=== PATIENT | female | born 1960 | race Caucasian/White ===

== ENCOUNTER 2018-04-16 16:26 | Emergency (ER) | payer MEDICARE, MEDICAID ==
[~2018-04-16] VITALS: Ht 157.5 cm; Wt 81.7 kg
[~2018-04-16 16:26] MED LIST: ALEVE220 MG PO; DOXYCYCLINE 10100 MG PO; LISINOPRIL10 MG PO; PRILOSEC 20 MG20 MG PO; ZOCOR 10 MG TAB10 MG PO
[2018-04-16] MEDS ORDERED: REMERON15 MG PO (16:39)
[2018-04-16] MEDS ORDERED: HYDROCHLOROTH12.5 M1 PO (16:39)
[2018-04-16] MEDS ORDERED: ZOCOR20 MG PO (16:39)
[2018-04-16] MEDS ORDERED: PRINIVIL20 MG PO (16:39)
[2018-04-16] MEDS ORDERED: FISH OIL 1,001000 M2 PO (16:40)
[2018-04-16] MEDS ORDERED: VITAMIN D2000 UNIT PO (16:40)
[2018-04-16] MEDS ORDERED: ZANTAC 150MG T150 MG PO (16:40)
[2018-04-16] MEDS ORDERED: NABUMETONE 750750 M1 PO (17:32)
[2018-04-16] MEDS ORDERED: TRAMADOL 50 MG50 MG PO (17:32)
[2018-04-16 17:39] VITALS: BP 128/82
--- NOTE | 2018-04-17 11:18 | EKG ---
[place] [address] ELECTROCARDIOGRAM REPORT Name: KAREN GUNDERSON Room: [facility]#: [id number] Admission: 04/16/18 Attend Phys: Discharge: 04/16/18 Date of : 62 Report #: [id number] THIS REPORT FOR: //name// [facility] ED Test Date: 2018-04-16 Test Time: 16:43:26 Pat Name: KAREN LAVAR Department: Room: Gender: F [employer]: EVE : 1960 Requested By: Elayne Woo Order Number: [id number] Nico MD: Pro Tran Measurements Intervals [place] Rate: 90 P: 58 WA: 132 QRS: -40 QRSD: 97 T: 68 QT: 358 QTc: 438 Interpretive Statements Sinus rhythm Left axis deviation No previous ECG available for comparison Electronically Signed On 04-17-2018 11:18:17 [employer] by Pro Tran [email or web address] <ELECTRONICALLY SIGNED> By: Pro Tran MD, [facility] 04/17/18 1118 1643 1643 Pro Tran MD, FACC /EPI
== END 2018-04-16 17:40 | disposition home or self-care (01) ==
LOC: M.ERS 16:26
DX: M75.22 Bicipital tendinitis, left shoulder (principal); M75.21 Bicipital tendinitis, right shoulder; I10 Essential (primary) hypertension; E78.00 Pure hypercholesterolemia, unspecified